=== PATIENT | male | born 1955 | race Caucasian/White ===

== ENCOUNTER 2021-12-10 07:44 | Outpatient (CLI) | payer MEDICARE, BC, SELFPAY ==
[2021-12-10 11:31] LABS: Cholesterol* 190 mg/dL (90-199); HDL Cholesterol* 39 mg/dL (>=40); LDL Cholesterol Calculated 111 mg/dL (<100); Triglycerides* 201 mg/dL (40-149)
== END 2021-12-10 07:45 | disposition home or self-care (01) ==
LOC: NFLDREF 07:45
PROVIDERS: PCP Internal Medicine; Visit Provider Internal Medicine
DX: E78.5 Hyperlipidemia, unspecified (principal)
CPT/HCPCS: 80061

== ENCOUNTER 2023-10-28 08:20 | Outpatient (CLI) | payer MEDICARE, BC, SELFPAY ==
--- OUTSIDE RECORDS SUMMARY | 2023-11-01 10:55 | XMS_ITS | Data Portability ---
Author Organization [place] [facility] Address [address] [place] [address] Care Team Providers Care Pantry Goods Maker Name Role Phone MEME CUADRAHERINE Primary Care Provider Assessment No assessment recorded. Plan of Treatment Reminders Order Date Submit Date Provider Last Modified By Organization Details Last Modified Time Details Appointments CT SCAN 2023 01:30P M CT Not available Not available Not available PSA 2023 01:30P M [facility] Not available Not available Not available ESTABL ISHED 2023 02:20P M Jermain Arellano MD Not available Not available Not available Lab PSA, serum or plasma 2022 023 [email or web address], [address], [place], [address], 12/08/2022 10:45:04 PSA, total, serum or plasma 2022 023 [email or web address] [facility], [address], [place], [address], 12/15/2022 08:49:30 Referral None record ed. Procedures None record ed. Surgeries None record ed. Imaging CT, abdome n + pelvis , w/o contra st 2022 023 [facility] , [address] [place], [address], 08/31/2023 13:20:24 Medication Orders hydroc hlorot hiazid e 25 mg tablet 2022 023 [id number], [address] [place], [place], [phone], 12/08/2022 11:15:24 Patient TargetsNo targets recorded. Patient Instructions Encounter Date Encounter Id Patient Instructions Last Modified By Organization Details Last Modified Time 12/08/2022 [id number] Not available 12/08/2022 10:06:58 Reason for Referral None Reported. Results Created Date Observation Date Name Description Value Unit Range Abnormal Flag LastModifiedBy Organization Detail LastModifiedTime 12/09/1912/08/2022 PSA, serum or plasm a PSA 0.68 ng/ml 0-4.0 Not Available [facility] [address], [place], [address], 12/08/2022 10:31:54 12/09/1912/08/2022 XR, kidne y + urete r + bladd er EXAM: XR, KIDNEY + URETER + BLADDE R [facility] [place] DATE: 023 INDICA TION: Calcul us of kidney COMPAR BAYRON: None. IMPRES SARIAH: 2 mm calcif icatio n is noted overly ing the lower pole of the right kidney . No other discre te calcif icatio ns are seen overly ing the kidney s but evalua tion is subopt imal due to overly ing bowel gas and stool. Modera te to large stool burden is seen throug hout the colon. Multil evel degene rative change s are seen in the spine. This report was electr onical ly interp reted by: Rubin Ordoñez MD on 2022 at 09:40 [facility] [address], [place], [address], 12/14/2022 17:54:36 Result Notes Documentation Provider Name and Address Organization Details Recorded Time Xr, Kidney + Ureter + Bladder : EXAM: XR, KIDNEY + URETER + BLADDER LOCATION: [facility] DATE: 12/08/2022 INDICATION: Calculus of kidney COMPARISON: None. IMPRESSION: 2 mm calcification is noted overlying the lower pole of the right kidney. No other discrete calcifications are seen overlying the kidneys but evaluation is suboptimal due to overlying bowel gas and stool. Moderate to large stool burden is seen throughout the colon. Multilevel degenerative changes are seen in the spine. This report was electronically interpreted by: Rubin Ordoñez MD on 12/08/2022 at 09:40 Jermain Arellano MD [address] [place] [address],[address], [address], [facility] 12/14/2022 17:54:36 Procedures Surgical History Date Name Laterality Status Provider Name and Address Organization Details Recorded Time 12/08/2022 METAL BALER/blood draw completed Jermain Arellano MD [address] [place] [phone], [facility] 12/08/2022 10:31:47 Imaging Results Imaging Date Name Status LastModified by Organiz ation Details LastModified Time 12/08/2022 XR, kidney + ureter + bladder completed [facility] [address] [place], [address], 12/14/2022 17:54:36 Procedure Notes None recorded. Medical Equipment None Reported. Allergies No known drug allergies Medications Name Sig Start Date Stop Date Status Note LastModified by Organization Details LastModified Time simvastatin 10 mg tablet TAKE 1 TABLET BY MOUTH EVERY DAY AT BEDTIME active Not Available Not Available No t Available hydrochlorothia zide 25 mg tablet TAKE 1 TABLET BY MOUTH EVERY DAY active Not Available Not Available No t Available Vitals Date Recorded Body height Body mass index (BMI) Body weight Provider Name and Address Organization Details Last Updated DateTime 12/08/2022 177.8 cm 28 kg/m2 94601.51 g Jermain Arellano MD [address] [place] [address], [phone], [facility] 12/08/2022 10:30:00 Social History Question Answer Notes LastModified by Organizat ion Details LastModified Time Tobacco Smoking Status Never Smoker Jermain Arellano MD [address] [place] [address],[address], [address], [facility] 12/08/2022 10:30:36 What Is Your Level Of Alcohol Consumption? Occasional Information not available 12/08/2022 What Was The Date Of Your Most Recent Tobacco Screening? 12/08/2022 Information not available 12/08/2022 Sex: Male Functional Status None recorded. Mental Status None recorded. Family History Relationship Description Onset Age of this Age Resolved Age Notes Father Family history of prostate cancer and brother Medical History Condition Response Other N High Blood Pressure N Kidney Stones Y Depression N Sexually Transmitted Infection N Cancer N Bleeding Disorder N Lung Disease N GERD/Acid Reflux N High Cholesterol Y Diabetes N Heart Disease N Immunizations Vaccine Type Date Status Provider Name and Address Organization Details Recorded Time Influenza, split virus, quadrivalent, preservative 03/09/2020 completed Jessica Allar null, [facility] 04/23/2023 09:17:16 Influenza, recombinant, quadrivalent, PF 04/06/2019 completed Jessica Allar null, [facility] 04/23/2023 09:17:16 zoster recombinant 05/31/2019 completed Jessica Al lar null, [facility] 04/23/2023 09:17:16 zoster recombinant 01/06/2019 completed Jessica Al lar null, [facility] 04/23/2023 09:17:16 Influenza, high-dose, quadrivalent, PF 02/22/2021 completed Jessica Allar null, [facility] 04/23/2023 09:17:16 Influenza, high-dose, quadrivalent, PF 03/29/2022 completed Jessica Allar null, [facility] 04/23/2023 09:17:16 COVID-19, mRNA, LNP-S, PF, 100 mcg/0.5mL dose or 50 mcg/0.25mL dose 10/11/2021 completed Jessica Allar null, [facility] 04/23/2023 09:17:16 COVID-19, mRNA, LNP-S, PF, 30 mcg/0.3 mL dose 06/18/2020 completed Jessica Allar null, [facility] 04/23/2023 09:17:16 COVID-19, mRNA, LNP-S, PF, 30 mcg/0.3 mL dose 07/09/2020 completed Jessica Allar null, [facility] 04/23/2023 09:17:16 COVID-19, mRNA, LNP-S, PF, 30 mcg/0.3 mL dose 03/07/2021 completed Jessica Allar null, [facility] 04/23/2023 09:17:16 COVID-19, mRNA, LNP-S, bivalent, PF, 30 mcg/0.3 mL dose 04/07/2022 completed Jessica Allar null, [facility] 04/23/2023 09:17:16 pneumococcal polysaccharide PPV23 07/24/2020 completed Jessica Allar null, [facility] 04/23/2023 09:17:16 Tdap 11/01/2008 completed Jessica Allar null, [facility] 04/23/2023 09:17:16 Pneumococcal conjugate PCV 13 04/06/2019 completed Jessica Allar null, [facility] 04/23/2023 09:17:16 Influenza, split virus, trivalent, PF 06/01/2013 completed Jessica Allar null, [facility] 04/23/2023 09:17:16 Td (adult), 5 Lf tetanus toxoid, preservative free, adsorbed 06/03/2005 completed Jessica Allar null, [facility] 04/23/2023 09:17:16 Td (adult), 2 Lf tetanus toxoid, preservative free, adsorbed 06/27/2019 completed Jessica Allar null, [facility] 04/23/2023 09:17:16 Hep B, adult 07/08/2010 completed Jessica Allar null, [facility] 04/23/2023 09:17:16 Hep B, adult 01/24/2010 completed Jessica Allar null, [facility] 04/23/2023 09:17:16 Hep A, adult 11/14/2010 completed Jessica Allar null, [facility] 04/23/2023 09:17:16 typhoid, ViCPs 12/14/2009 completed Jessica Allar null, [facility] 04/23/2023 09:17:16 Influenza, split virus, quadrivalent, PF 02/11/2016 completed Jessica Allar null, [facility] 04/23/2023 09:17:16 Hep A-Hep B 12/14/2009 completed [facility] 04/23/2023 09:17:16 Past Encounters Encounter ID Performer Location Encounter Start Date Encounter Closed Date Diagnosis/Indication Diagnosis SNOMED-CT Code [id number] Jermain Arellano MD [facility] [address] [place] [address] 12/08/2022 10:01:04 12/18/2022 13:18:46 Lower urinary tract symptoms due to benign prostatic hypertrophy [id number] Kidney stone 14463457 Health Concerns Section Related Observation LastModified by Organization Detai ls LastModified Time None Recorded Concern Status LastModified by Organization Details LastModified Time None Recorded Advance Directives Directive None Recorded Payers Encounter Date Sequence Insurance Name Policy Number Policy Watts Covered Member ID Watts Member ID Guarantor Name 12/08/2022 1 [place] [employer] MEDICARE COST [id number] Jermain Pearson [id number] Jermain Pearson Notes Date Note Type Note Provider Name and Address Organization Details Recorded Time 12/08/2022 text/html HPI Notes: 67 yo male with H/O Bilateral kidney stones - passed his first stone in 2012. He developed Left flank pain on 10/18/15. CT scan (10/18/15) revealed a 4.5 mm stone in the Left mid-ureter; Left kidney - 4 mm and 2 mm stone (mid-pole), 1 mm stone (lower), 3.5 cm cortical cyst (upper pole); Right kidney - 4 (1 mm) stones (lower pole). His mother has a H/O kidney stones / Father and brother have H/O prostate cancer. He underwent Left ureteroscopy with laser lithotripsy stone removal, and stent placement on 05/16/16. His stone was 80% Calcium oxalate monohydrate and 20% Calcium oxalate dihydrate. He is on HCTZ 25 mg daily. 09/23/21 - He presents for follow-up on kidney stones and BPH. He denies abdominal or flank pain. He voids every 2-3 hours during the day and 1-2x/night. He denies hesitancy, urgency or dysuria. He does not a slow stream. 12/08/22 - He presents for follow-up on kidney stones and BPH. He voids every 2-3 hours during the day and 1-2x/night. No flank pain. - KUB (12/08/22) - no stone - PSA - 0.68 PSA - 0.38 (06/09/05) - 0.61 (03/10/16) - 0.59 (07/12/18) - 0.66 (07/14/19) - 0.69 (07/20/20) - 0.79 (09/16/21) - 0.68 (12/08/22 CT scan (04/22/16) - Left - 6 mm stone at UVJ - 4 mm and 2 mm stones in midpole (unchanged) - 3.5 cm cyst (upper pole) - Right - 3 (1-2 mm) stones in lower pole (unchanged). CT scan (07/12/18) - Left - 4 cm cyst (upper pole) - 1.7 parapelvic cyst - no stones - Right 3-4 (2 mm) stone lower pole (unchanged) CT scan (09/16/21) - 3 small (1-2 mm) stones in Right lower pole KUB (12/08/22) - no stones seen Jermain Arellano MD [address], [place], [address], [place] [facility] 12/08/2022 11:15:41
--- OUTSIDE RECORDS SUMMARY | 2023-11-01 10:55 | XMS_ITS | Clinical Summary ---
Author Organization [facility] Address [place], [place] [address] Care Team Providers Care Fire Protection Equipment Technician Name Role Phone Leilani Rios MD Primary Care Provider [phone]- [phone] Allergies No known active allergies Medications Medication Sig Dispensed Refills Start Date End Date Status glucosamine-chondroit in, 500-400 mg, (COSAMIN DS 500/400) 500-400 mg cap Take 1 capsule by mouth once daily. Active VIT C/VIT E/LUTEIN/MIN/OMEGA-3 (OCUVITE ORAL) Take 1 tablet by mouth once daily. Active simvastatin (ZOCOR) 10 mg tablet Take 10 mg by mouth at bedtime. 09/05/2021 Active hydroCHLOROthiazide (HCTZ) 25 mg tabletIndications:Kid jaimie stone Take 1 Tablet (25 mg) by mouth once daily. 90 Tablet 3 09/23/2021 Active Active Problems Problem Noted Date Diagnosed Date Benign prostatic hyperplasia with nocturia 05/13 Left ureteral stone 11/21/2015 Bilateral kidney stones 11/21/2015 Immunizations Name Administration Dates Next Due Influenza, IIV4 02/11/2016 Td (Age >=7 Years) 06/03/2005,12/22/1995 Social History Tobacco Use Types Packs/Day Years Used Date Smoking Tobacco: Former Cigarettes 0.1 1.5 0 11/1968 - 1970 Smokeless Tobacco: Never Tobacco Cessation:Counseling Given: Yes Comments:6 cigarettes per year in teenage years for 1-2 years Alcohol Use Standard Drinks/Week Comments Yes 3 (1 standard drink = 0.6 oz pur e alcohol) 3-5 drinks per week Sex and Gender Information Value Date Recorded Sex Assigned at Not on file Gender Identity Not on file Sexual Orientation Not on file Obstetrics History Last Filed Vital Signs Vital Sign Reading Time Taken Comments Blood Pressure 135/84 09/23/2021 8:27 AM CDT Pulse 85 09/23/2021 8:27 AM CDT Temperature 36.9 ??C (98.5 ??F) 07/21/2018 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 Respiratory Rate 18 09/23/2021 8:27 AM CDT Oxygen Saturation 95% 09/23/2021 8:2 7 AM CDT Inhaled Oxygen Concentration - - Weight 93.4 kg (206 lb) 09/23/2021 8:27 AM CDT PT weighed with shoes on Height 179.1 cm (5' 10.5) 11/21/2015 2 :07 PM CDT Body Mass Index 29.14 11/21/2015 2:07 PM CDT Plan of Treatment Health Maintenance Due Date Last Done Comments Tdap 1964 Depression screening for age 12+ 1965 Hepatitis C screening for age 18-79 11/14/1971 Colonoscopy through age 75 1998 Lipids for age 45-75 1998 Zoster (shingles) series for age 50+ (1 of 2) 11/14/2003 Tetanus booster 06/03/2015 06/03/2005, 12/22/1995 BMI (ht and wt on same day) for age 18+ 11/20/2016 11/21/2015 Medicare Wellness for age 65+ 2018 Pneumococcal series for age 65+ (1 of 1 - PCV) 2018 COVID-19 vaccine series (2022- season) 2023 03/07/2021, 07/09/2020, 06/18/2020 Influenza for age 65+ 01/24/2024 02/11/2016 Care Teams Fire Protection Equipment Technician Relationship Specialty Start Date End Date Leilani Rios MD [address] [place] [id number] PCP - General Internal Medicine 07/23/20
== END 2023-10-28 08:21 | disposition home or self-care (01) ==
LOC: NFLDREF 11-01 10:54
PROVIDERS: PCP Internal Medicine; Referring Provider Internal Medicine; Visit Provider Internal Medicine
DX: E78.5 Hyperlipidemia, unspecified (principal); R73.03 Prediabetes
CPT/HCPCS: 80048; 80061

== ENCOUNTER 2024-10-27 09:14 | Outpatient (CLI) | payer MEDICARE, BC, SELFPAY ==
--- NOTE | 2024-10-27 10:34 | P.ANES_ITS ---
Anesthesia Charges Start Date/Time Anesthesia Start Date: 10/27/24 Anesthesia Start Time: 10:05 Stop Date/Time Anesthesia Stop Date: 10/27/24 Anesthesia Stop Time: 10:33 Summary Extremes of Age - Over 70 or under 1: EMOTIONAL SUPPORT TEACHER Coding CPT Codes CPT Codes: DUONG LWR INTST NDSC NOS - 10408 ([id number]) P2 - PATIENT W/MILD SYST DISEASE, QK - DIETETICS TEACHER 2-4 CNCRNT ANES PROC, QX - EMOTIONAL SUPPORT TEACHER SVC W/ MD MED DIRECTION Additional Codes: Summary - Extremes of Age - Over 70 or under 1: EMOTIONAL SUPPORT TEACHER ([id number])
--- NOTE | 2024-10-27 10:34 | W.ANESCHARGE ---
Anesthesia Charges Start Date/Time Anesthesia Start Date: 10/27/24 Anesthesia Start Time: 10:05 Stop Date/Time Anesthesia Stop Date: 10/27/24 Anesthesia Stop Time: 10:33 Summary Extremes of Age - Over 70 or under 1: WET END TESTER Coding CPT Codes CPT Codes: DUONG LWR INTST NDSC NOS - 49295 ([id number]) P2 - PATIENT W/MILD SYST DISEASE, QK - PROPERTY OFFICER 2-4 CNCRNT ANES PROC, QX - WET END TESTER SVC W/ MD MED DIRECTION Additional Codes: Summary - Extremes of Age - Over 70 or under 1: WET END TESTER ([id number])
--- NOTE | 2024-10-27 10:41 | W.ANESCHARGE ---
Anesthesia Charges Start Date/Time Anesthesia Start Date: 10/27/24 Anesthesia Start Time: 10:05 Stop Date/Time Anesthesia Stop Date: 10/27/24 Anesthesia Stop Time: 10:33 Summary Extremes of Age - Over 70 or under 1: MDA Coding CPT Codes CPT Codes: ANES LWR INTST NDSC NOS - 20682 ([id number]) QK - RECORDS MANAGEMENT ENGINEER 2-4 CNCRNT ANES PROC, QX - OPERATIONS RESEARCH SCIENTIST SVC W/ MD MED DIRECTION, P2 - PATIENT W/MILD SYST DISEASE Additional Codes: Summary - Extremes of Age - Over 70 or under 1: MDA ([id number])
== END 2024-10-27 09:15 | disposition home or self-care (01) ==
LOC: OP CLINIC 09:16
PROVIDERS: PCP Internal Medicine; Visit Provider Surgery
DX: Z12.11 Encounter for screening for malignant neoplasm of colon (principal); D12.3 Benign neoplasm of transverse colon; Z86.0109 Personal history of other colon polyps; K57.30 Diverticulosis of large intestine without perforation or abscess without bleeding
CPT/HCPCS: 00811; 45385; 99100; J2704

== ENCOUNTER 2024-11-30 08:08 | Outpatient (CLI) | payer MEDICARE, BC, SELFPAY | END 2024-11-30 08:09 | disposition home or self-care (01) | LOC: NFLDREF 12-02 13:09 | PROVIDERS: PCP Internal Medicine; Referring Provider Internal Medicine; Visit Provider Internal Medicine | DX: E78.5 Hyperlipidemia, unspecified (principal); R73.03 Prediabetes; Z87.442 Personal history of urinary calculi | CPT/HCPCS: 80048; 80061 ==